=== PATIENT | female | born 1980 | race Caucasian/White ===

== ENCOUNTER 2017-05-11 14:09 | Outpatient (CLI) | payer OTHER, MEDICAID | END 2017-05-11 18:10 | disposition home or self-care (01) | LOC: OBT 14:09 → L-D 14:11 → OBT 18:10 | DX: O62.9 Abnormality of forces of labor, unspecified (principal); Z3A.38 38 weeks gestation of pregnancy | CPT/HCPCS: 76818 ==

== ENCOUNTER 2017-05-16 09:55 | Inpatient (IN) | payer OTHER ==
[2017-05-16] MEDS ORDERED: OXYTOCIN 30 UNITS/LR 500 ML IV (10:30)
[2017-05-16] MEDS ORDERED: MISOPROSTOL 200 MCG TAB PR (10:30)
[2017-05-16] MEDS ORDERED: BUTORPHANOL 2 MG INJ IV (10:30)
[2017-05-16] MEDS ORDERED: CARBOPROST 250 MCG INJ IM (10:30)
[2017-05-16] MEDS ORDERED: IBUPROFEN 600 MG TAB PO (10:30)
[2017-05-16] MEDS ORDERED: METHYLERGONOVINE 0.2 MG INJ IM (10:30)
[2017-05-16 10:46] LABS: ADD MAN DIFF? NO
[2017-05-16] MEDS: LACTATED RINGER'S 1,000 ML IV ×2 (10:48→15:30)
[2017-05-16 11:02] LABS: BASOPHILS % 0.3 % (0.0-2.0); EOSINOPHILS # 0.1 10^3/ul (0.0-0.5); EOSINOPHILS % 1.5 % (0.0-7.0); HEMATOCRIT 29.1 % (37.0-47.0); HEMOGLOBIN 9.8 g/dl (12.0-16.0); LYMPHOCYTES # 1.5 10^3/ul (0.8-2.9); LYMPHOCYTES % 19.8 % (15.0-51.0); MEAN CORPUSCULAR HEMOGLOBIN 28.7 pg (29.0-33.0); MEAN CORPUSCULAR HGB CONC 33.7 g/dl (32.0-37.0); MEAN CORPUSCULAR VOLUME 85.3 fl (82.0-101.0); MEAN PLATELET VOLUME 11.4 fl (7.4-10.4); MONOCYTE # 0.5 10^3/ul (0.3-0.9); MONOCYTES % 6.5 % (0.0-11.0); NEUTROPHIL # 5.3 10^3/ul (1.6-7.5); NEUTROPHILS % 71.2 % (39.0-77.0); PLATELET COUNT 198 10^3/UL (140-415); RED BLOOD COUNT 3.41 10^6/ul (4.20-5.40); RED CELL DISTRIBUTION WIDTH 13.3 % (11.5-14.5)
[2017-05-16 11:02] LABS: WHITE BLOOD COUNT 7.4 10^3/ul (4.8-10.8)
[2017-05-16 11:22] LABS: INR 0.95; PROTIME 12.8 Sec (11.9-14.9)
[2017-05-16 11:23] LABS: PARTIAL THROMBOPLASTIN TIME 25.2 Sec (25.0-35.0)
[2017-05-16 12:24] LABS: HEPATITIS B SURFACE ANTIGEN NEGATIVE (NEGATIVE)
[2017-05-16] MEDS: OXYTOCIN 30 UNITS/LR 500 ML IV (13:15)
[2017-05-16] MEDS ORDERED: LACTATED RINGER'S 1,000 ML IV (20:30)
[2017-05-16] MEDS ORDERED: OXYCODONE/ACETAMINOPHEN (5/325) TAB PO (20:30)
[2017-05-16 22:24] LABS: RAPID PLASMA REAGIN NONREACTIVE (NR)
[2017-05-17] MEDS: LACTATED RINGER'S 1,000 ML IV ×2 (00:43→20:28)
[2017-05-17] MEDS: BUTORPHANOL 2 MG INJ IV ×2 (06:31→08:37)
[2017-05-17] MEDS: OXYTOCIN 30 UNITS/LR 500 ML IV ×2 (08:23→08:36)
[2017-05-17] MEDS: LIDOCAINE 1% (MPF) 30 ML INJ INJ (08:36)
[2017-05-17] MEDS ORDERED: MISOPROSTOL 200 MCG TAB PR (10:30)
[2017-05-17] MEDS ORDERED: OXYTOCIN 30 UNITS/LR 500 ML IV (10:30)
[2017-05-17] MEDS ORDERED: CARBOPROST 250 MCG INJ IM (10:30)
[2017-05-17] MEDS ORDERED: ZOLPIDEM 5 MG TAB PO (10:30)
[2017-05-17] MEDS ORDERED: OXYCODONE/ASPIRIN (4.88/325) TAB PO ×2 (10:30)
[2017-05-17] MEDS ORDERED: METHYLERGONOVINE 0.2 MG INJ IM (10:30)
[2017-05-17] MEDS: IBUPROFEN 600 MG TAB PO ×2 (12:18→18:00)
[2017-05-17] MEDS: WITCH HAZEL/GLYCERIN PAD PR (12:18)
[2017-05-17] MEDS: BENZOCAINE 20% 56 ML SPRAY TOP (12:19)
[2017-05-17] MEDS: LANOLIN 7 GM TUBE TOP (12:19)
[2017-05-17] MEDS: SENNA/DOCUSATE NA (8.6MG/50MG) TAB PO (22:00)
[2017-05-18] MEDS: LACTATED RINGER'S 1,000 ML IV ×4 (04:35→20:30)
[2017-05-18] MEDS: IBUPROFEN 600 MG TAB PO ×4 (05:15→18:00)
[2017-05-18] MEDS: SENNA/DOCUSATE NA (8.6MG/50MG) TAB PO ×2 (09:00→21:00)
[2017-05-18 09:42] LABS: ADD MAN DIFF? NO
[2017-05-18 09:47] LABS: BASOPHILS % 0.3 % (0.0-2.0); EOSINOPHILS # 0.2 10^3/ul (0.0-0.5); EOSINOPHILS % 1.4 % (0.0-7.0); HEMATOCRIT 29.9 % (37.0-47.0); HEMOGLOBIN 9.7 g/dl (12.0-16.0); LYMPHOCYTES # 1.7 10^3/ul (0.8-2.9); LYMPHOCYTES % 14.4 % (15.0-51.0); MEAN CORPUSCULAR HEMOGLOBIN 28.2 pg (29.0-33.0); MEAN CORPUSCULAR HGB CONC 32.4 g/dl (32.0-37.0); MEAN CORPUSCULAR VOLUME 86.9 fl (82.0-101.0); MEAN PLATELET VOLUME 11.5 fl (7.4-10.4); MONOCYTE # 0.9 10^3/ul (0.3-0.9); MONOCYTES % 7.3 % (0.0-11.0); NEUTROPHIL # 9.1 10^3/ul (1.6-7.5); PLATELET COUNT 190 10^3/UL (140-415); RED BLOOD COUNT 3.44 10^6/ul (4.20-5.40); RED CELL DISTRIBUTION WIDTH 13.6 % (11.5-14.5)
[2017-05-18] MEDS ORDERED: DIPHENHYDRAMINE 50 MG INJ IV (17:00)
[2017-05-18] MEDS ORDERED: FENTAnyl 50 MCG/ML VIAL IV ×2 (17:00)
[2017-05-18] MEDS ORDERED: MEPERIDINE 25 MG INJ IV (17:00)
[2017-05-18] MEDS ORDERED: morphine (1 MG/ML) 10ML SYRINGE IV ×2 (17:00)
[2017-05-18] MEDS ORDERED: LABETALOL HCL 20MG INJ IV (17:00)
[2017-05-18] MEDS ORDERED: hydrALAzine 20 MG INJ IV (17:00)
[2017-05-18] MEDS ORDERED: HYDROmorphONE (0.2 MG/ML) 10ML SYG IV (17:00)
[2017-05-18] MEDS ORDERED: METOCLOPRAMIDE 10 MG INJ IV (17:00)
[2017-05-18] MEDS: BUPIVACAINE 0.5%/EPI (SDV) 30 ML INJ INJ (18:21)
[2017-05-18] MEDS: KETOROLAC 60 MG INJ IM (18:53)
[2017-05-18] MEDS: ONDANSETRON 4 MG INJ IV (19:19)
[2017-05-18] MEDS: HYDROmorphONE (0.2 MG/ML) 10ML SYG IV ×2 (19:19→19:30)
[2017-05-18] MEDS: BUTORPHANOL 2 MG INJ IM (20:09)
[2017-05-19] MEDS: CEPHALEXIN 500 MG CAP PO ×3 (00:40→11:17)
[2017-05-19] MEDS: IBUPROFEN 600 MG TAB PO ×4 (00:41→11:17)
[2017-05-19] MEDS: LACTATED RINGER'S 1,000 ML IV ×2 (04:30→04:53)
[2017-05-19] MEDS: SENNA/DOCUSATE NA (8.6MG/50MG) TAB PO (08:26)
[2017-05-19] MEDS: DIPHTH/TET/ACEL PERTUSS (ADULT) 0.5 ML VIAL IM* (09:00)
[2017-05-19] MEDS: WITCH HAZEL/GLYCERIN PAD PR (13:35)
[2017-05-19] MEDS: BENZOCAINE 20% 56 ML SPRAY TOP (13:35)
== END 2017-05-19 13:45 | disposition home or self-care (01) | DRG 767 ==
LOC: L-D 09:55 → PP1 05-17 10:28
PROVIDERS: Obstetrics & Gynecology
PROC: 0UL70ZZ Occlusion of Bilateral Fallopian Tubes, Open Approach (ICD-10-PCS; 2017-05-18 17:00)
PROC: 10E0XZZ Delivery of Products of Conception, External Approach (ICD-10-PCS; principal; 2017-05-18 17:38)
PROC: 0UQGXZZ Repair Vagina, External Approach (ICD-10-PCS; 2017-05-18 17:38)
PROC: 3E033VJ Introduction of Other Hormone into Peripheral Vein, Percutaneous Approach (ICD-10-PCS; 2017-05-18 17:38)
DX: O71.4 Obstetric high vaginal laceration alone (principal); Z30.2 Encounter for sterilization; Z37.0 Single live birth; Z3A.39 39 weeks gestation of pregnancy
CPT/HCPCS: 76815; 85025; 85610; 85730; 86592; 86850; 86900; 86901; 87340; 99464

== ENCOUNTER 2017-05-19 22:26 | Emergency (ER) | payer OTHER ==
[2017-05-20 01:57] LABS: URINE BLOOD (Dip) POC 3+ (NEGATIVE); URINE GLUCOSE (Dip) POC Negative (NEGATIVE); URINE KETONES (Dip) POC Negative (NEGATIVE); URINE LEUKOCYTE EST (Dip) POC 1+ (NEGATIVE); URINE NITRITE (Dip) POC Negative (NEGATIVE); URINE TOTAL PROTEIN POC 1+ (NEGATIVE)
[2017-05-20] MEDS: HYDROCODONE/APAP (5/325) TAB PO (02:58)
== END 2017-05-20 03:07 | disposition home or self-care (01) ==
LOC: E/R 22:26
DX: T81.4XXA Infection following a procedure, initial encounter (principal); L03.90 Cellulitis, unspecified; Y76.3 Surgical instruments, materials and obstetric and gynecological devices (including sutures) associated with adverse incidents
CPT/HCPCS: 81003; 99283